=== PATIENT | female | born 1955 | race Caucasian/White ===

== ENCOUNTER 2023-10-30 12:19 | Emergency (ER) | payer BC, MEDICARE ==
[~2023-10-30] VITALS: Ht 152.4 cm; Wt 61.0 kg
[2023-10-30 12:27] VITALS: O2SAT 98
[2023-10-30 12:52] LABS: BASOPHILS % 1.2 % (0.0-2.0); EOSINOPHILS % 2.9 % (0.0-5.0); HEMATOCRIT. 34.9 % (36.0-48.0); HEMOGLOBIN. 11.7 g/dL (12.0-16.0); MEAN CORPUSCULAR HEMOGLOBIN 29.1 pg (28.0-32.0); MEAN CORPUSCULAR HGB CONC 33.6 g/dL (31.0-37.0); MEAN CORPUSCULAR VOLUME 86.7 fL (81.0-99.0); MEAN PLATELET VOLUME 6.8 fl (7.4-10.4); MONOCYTES % 6.8 % (2.0-8.0); NEUTROPHILS % 62.1 % (40.0-76.0); PLATELET 321 x1000/uL (130-400); RED BLOOD CELL COUNT 4.03 mill/uL (4.2-5.4); RED CELL DISTRIBUTION WIDTH 13.5 % (11.6-14.6); WHITE BLOOD COUNT 6.9 x1000/uL (4.5-11.0)
[2023-10-30 13:28] LABS: ALANINE AMINOTRANSFERASE 15 IU/L (10-49); ALBUMIN 4.3 g/dL (3.2-4.8); ASPARTATE AMINOTRANSFERASE 24 IU/L (<34); BILIRUBIN TOTAL 0.7 mg/dL (0.1-1.0); CALCIUM 9.3 mg/dL (8.7-10.4); CARBON DIOXIDE 27 mEq/L (21-32); CHLORIDE 100 mEq/L (98-107); CREATININE 0.7 mg/dL (0.6-1.0); GLUCOSE 89 mg/dL (70-105); POTASSIUM 3.5 mEq/L (3.5-5.1); PROTEIN TOTAL 7.9 g/dL (6.0-8.3); SODIUM 134 mEq/L (136-145); UREA NITROGEN BLOOD 14 mg/dL (9-23)
[2023-10-30] MEDS: SODIUM CHLORIDE 0.9% 1,000 ML IV ONE (13:33)
[2023-10-30] MEDS: ONDANSETRON HCL 4MG/2ML INJ IV STA (13:34)
[2023-10-30] MEDS: MORPHINE SULFATE 4 MG/ML CPJ (NOT FOR IM USE) IV STA (13:34)
[2023-10-30 13:39] LABS: TROPONIN I HIGH SENSITIVITY < 4 ng/L (3.0-34)
[2023-10-30 14:37] LABS: CLARITY URINE CLEAR (CLEAR); COLOR URINE YELLOW (YELLOW); GLUCOSE URINE NEGATIVE (NEGATIVE); KETONES URINE NEGATIVE (NEGATIVE); LEUKOCYTE ESTERASE URINE NEGATIVE (NEGATIVE); NITRITE URINE NEGATIVE (NEGATIVE); OCCULT BLOOD URINE NEGATIVE (NEGATIVE); PROTEIN URINE NEGATIVE (NEGATIVE); SPECIFIC GRAVITY URINE 1.005 (1.005-1.030); UROBILINOGEN URINE 0.2 E.U./dL (0.2-1.0)
[2023-10-30 16:30] VITALS: BP 159/75; PULSE 73; RESP 17; TEMP 98.2
[2023-10-30] MEDS ORDERED: OMEP20CA14 MT (17:58)
[2023-10-30] MEDS ORDERED: AZIT250T MT (17:58)
== END 2023-10-30 18:35 | disposition home or self-care (01) ==
LOC: ER 12:19
DX: R10.816 Epigastric abdominal tenderness (principal); I12.9 Hypertensive chronic kidney disease with stage 1 through stage 4 chronic kidney disease, or unspecified chronic kidney disease; N18.9 Chronic kidney disease, unspecified; Z90.49 Acquired absence of other specified parts of digestive tract; Z98.890 Other specified postprocedural states; Z20.822 Contact with and (suspected) exposure to COVID-19
CPT/HCPCS: 99285; 74176; 96360; 76705; 71045; 87426; 80053; 81003; 83690; 85025; 84484; 87804 ×2; 36415; 93005; J7030

== ENCOUNTER 2024-06-07 14:26 | Emergency (ER) | payer MEDICARE ==
[~2024-06-07] VITALS: Ht 147.3 cm; Wt 62.0 kg
[~2024-06-07 14:26] MED LIST: AZIT250T MT; OMEP20CA14 MT
[2024-06-07 14:46] VITALS: O2SAT 98
[2024-06-07 17:37] LABS: BASOPHILS % 0.2 % (0.0-2.0); HEMATOCRIT. 35.1 % (36.0-48.0); HEMOGLOBIN. 11.6 g/dL (12.0-16.0); LYMPHOCYTES % 10.8 % (20.0-50.0); MEAN CORPUSCULAR HEMOGLOBIN 28.9 pg (28.0-32.0); MEAN CORPUSCULAR VOLUME 87.6 fL (81.0-99.0); MEAN PLATELET VOLUME 7.3 fl (7.4-10.4); MONOCYTES % 6.8 % (2.0-8.0); NEUTROPHILS % 82.2 % (40.0-76.0); PLATELET 228 x1000/uL (130-400); RED BLOOD CELL COUNT 4.01 mill/uL (4.2-5.4); RED CELL DISTRIBUTION WIDTH 13.5 % (11.6-14.6); WHITE BLOOD COUNT 14.7 x1000/uL (4.5-11.0)
[2024-06-07 17:40] LABS: POTASSIUM 3.6 mEq/L (3.5-5.1)
[2024-06-07 17:41] LABS: CALCIUM 9.2 mg/dL (8.7-10.4)
[2024-06-07 18:18] LABS: CLARITY URINE CLOUDY (CLEAR); COLOR URINE DARK YELLOW (YELLOW); GLUCOSE URINE NEGATIVE (NEGATIVE); KETONES URINE 1+ (NEGATIVE); LEUKOCYTE ESTERASE URINE 2+ (NEGATIVE); NITRITE URINE NEGATIVE (NEGATIVE); OCCULT BLOOD URINE NEGATIVE (NEGATIVE); PH URINE 5.5 (4.5-8.0); PROTEIN URINE 1+ (NEGATIVE)
[2024-06-07 18:38] LABS: BACTERIA URINE 2+; RBC URINE 0-2 /hpf (0-2); SQUAMOUS EPITHELIAL CELL URINE 1+ /lpf (RARE/1+)
[2024-06-07] MEDS ORDERED: TOPUD MT (18:52)
[2024-06-07] MEDS ORDERED: CIPR-263 MT (18:52)
[2024-06-07] MEDS ORDERED: DEXT30SU17 MT (18:52)
[2024-06-07 19:00] VITALS: BP 116/75; PULSE 83; RESP 17; TEMP 36.94740; O2SAT 99
== END 2024-06-07 19:01 | disposition home or self-care (01) ==
LOC: ER 14:43
DX: N39.0 Urinary tract infection, site not specified (principal); R05.9 Cough, unspecified; R06.02 Shortness of breath; I10 Essential (primary) hypertension; Z90.49 Acquired absence of other specified parts of digestive tract; Z98.890 Other specified postprocedural states; Z79.899 Other long term (current) drug therapy
CPT/HCPCS: 36415; 71045; 80048; 81003; 83605; 85025; 99284

== ENCOUNTER 2024-09-14 15:10 | Emergency (ER) | payer MEDICARE ==
[~2024-09-14] VITALS: Ht 147.3 cm; Wt 63.0 kg
[~2024-09-14 15:10] MED LIST changes: +CIPR-263 MT; +DEXT30SU17 MT; +TOPUD MT
[2024-09-14 15:22] VITALS: O2SAT 98
[2024-09-14] MEDS ORDERED: ACETAMINOPHEN 325MG TABLET PO ONE (21:00)
[2024-09-14 23:12] VITALS: TEMP 36.89184; O2SAT 100
[2024-09-14 23:13] VITALS: BP 190/89; PULSE 94; RESP 18
[2024-09-14] MEDS: IBUPROFEN 600MG TABLET PO ONE (23:13)
[2024-09-14] MEDS: IBUPROFEN 600MG TABLET PO NR (23:13)
[2024-09-14 23:43] VITALS: TEMP 98.4
[2024-09-14] MEDS: ACETAMINOPHEN 325MG TABLET PO NR (23:43)
== END 2024-09-14 23:45 | disposition home or self-care (01) ==
LOC: ER 15:10
DX: B34.9 Viral infection, unspecified (principal); I10 Essential (primary) hypertension; Z79.899 Other long term (current) drug therapy; Z90.49 Acquired absence of other specified parts of digestive tract; Z88.8 Allergy status to other drugs, medicaments and biological substances
CPT/HCPCS: 71045; 99283